=== PATIENT | female | born 1955 | race Caucasian/White ===

== ENCOUNTER 2023-01-06 13:15 | Outpatient (AMB) | payer MEDICARE, SELFPAY ==
--- NOTE | 2023-01-06 13:34 | HO.NEPHOV ---
Intake Vital Signs 01/06/23 13:35 Height 5 ft 4 in Weight 145 lb 4 oz BMI 24.9 BP 146/60 H Blood Pressure Location Rt brachial Position Sitting Intake Visit Reasons: CKD (chronic kidney disease) Employment And Claims Aide Required: No Accompanied by: Self / Same As Patient Allergies No Known Allergies Allergy (Verified 01/06/23 09:09) HPI HPI Comments History of Present Illness Details I had the privilege of seeing Kristin in follow up for H/O JERALD and hypertension. She has hypertension and monitors her BP at home which has been at goal . She denies neuropathy , retinopathy, new CAD, CVA, CHF, PAD but has H/O carotid & renal artery stenosis. She is on ACEI. She does not take NSAID's regularly. She denies any nausea, vomiting, diarrhea, SOB, edema, PND, orthopnea, hematuria, hearing deficits. She claims to be compliant with medications. She has no sinusitis, epistaxis, photosensitivity, bone pain, sore throat , hemoptysis, skin lesions or recent antibiotic intake. She denied any active complaints at the time of this office visit. Her renal function remains at baseline Assessment & Plan Assessment & Plan (1) Chronic Kidney Disease: Code(s): N18.9 - Chronic kidney disease, unspecified (2) Chronic kidney disease, stage 3a: Code(s): N18.31 - Chronic kidney disease, stage 3a (3) Atherosclerosis of renal artery: Code(s): I70.1 - Atherosclerosis of renal artery Plan Renal function stable Serum potassium 5.3 Low K diet; Needs repeat K No medication changes made today No NSAID's; Shall order a F/U Doppler renal artery after next visit On lipid lowering agents Maintain good hydration Keep monitoring BP at home Has vascular follow up Answered all questions Follow up labs ordered Time spent reviewing chart/data/encounter/documentation 41 minutes Orders: Orders Creatinine 01/06/23 I70.1 - Atherosclerosis of renal artery, N18.31 - Chronic kidney disease, stage 3a Calcium 01/06/23 I70.1 - Atherosclerosis of renal artery, N18.31 - Chronic kidney disease, stage 3a Electrolytes 01/06/23 I70.1 - Atherosclerosis of renal artery, N18.31 - Chronic kidney disease, stage 3a Blood Urea Nitrogen 01/06/23 I70.1 - Atherosclerosis of renal artery, N18.31 - Chronic kidney disease, stage 3a Coding Level of Care Code Est Pt Level 4 (76377) Diagnoses Chronic Kidney Disease N18.9 Chronic kidney disease, stage 3a N18.31 Atherosclerosis of renal artery I70.1 [facility] Medical History (Updated 01/06/23 @ 13:59 by Tan Mendez MD) Chronic kidney disease, stage 3a Atherosclerosis of renal artery Right bundle branch block Essential (primary) hypertension Family History (Updated 01/06/23 @ 13:41 by Caryn Colbert MA) Mother Hypertension CKD (chronic kidney disease) Father Hypertension Social History (Updated 01/06/23 @ 09:08 by Caryn Colbert MA) Alcohol intake: never Patient Tobacco Use Status: Former Tobacco user
[2023-01-06 13:35] VITALS: BP 146/60; BMI 24.9
== END 2023-01-06 14:04 | disposition home or self-care (01) ==
LOC: HO.HKA 13:15
PROVIDERS: Visit Provider Internal Medicine Nephrology
DX: N18.31 Chronic kidney disease, stage 3a (principal); I70.1 Atherosclerosis of renal artery
CPT/HCPCS: 99215

== ENCOUNTER → 2023-01-06 13:15 | Outpatient (BNVA) | payer MEDICARE, SELFPAY | PROVIDERS: Visit Provider Internal Medicine Nephrology | DX: N18.31 Chronic kidney disease, stage 3a (principal); I70.1 Atherosclerosis of renal artery | CPT/HCPCS: 99212 ==

== ENCOUNTER 2023-08-23 14:23 | Outpatient (AMB) | payer MEDICARE, SELFPAY ==
--- NOTE | 2023-08-23 14:36 | HO.NEPHOV ---
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 She has hypertension and monitors her BP at home which has been at goal . She denies neuropathy , retinopathy, new CAD, CVA, CHF, PAD but has H/O carotid & renal artery stenosis. She is on ACEI. She does not take NSAID's regularly. She denies any nausea, vomiting, diarrhea, SOB, edema, PND, orthopnea, hematuria, hearing deficits. She claims to be compliant with medications. She has no sinusitis, epistaxis, photosensitivity, bone pain, sore throat , hemoptysis, skin lesions or recent antibiotic intake. She denied any active complaints at the time of this office visit. Her renal function remains at baseline [facility] Medical History (Updated 01/06/23 @ 13:59 by Tan Mendez MD) Chronic kidney disease, stage 3a Atherosclerosis of renal artery Right bundle branch block Essential (primary) hypertension Family History (Updated 01/06/23 @ 13:41 by Caryn Colbert MA) Mother Hypertension CKD (chronic kidney disease) Father Hypertension Social History (Updated 01/06/23 @ 09:08 by Caryn Colbert MA) Alcohol intake: never Patient Tobacco Use Status: Former Tobacco user Review of Systems Const All systems reviewed & are unremarkable except as noted in HPI and below Physical Exam Const General: comfortable and no acute distress Orientation/consciousness: patient oriented x3 HEENT Head: Yes normocephalic Mouth: Normal oral and palatal mucosa present Eyes EOM: EOMs intact bilaterally Neck Neck: Yes supple Resp Auscultation: clear to auscultation bilaterally Cardio Jugular venous distension: no JVD Rate: regular rate GI Palpation (GI): Soft to palpation Auscultation: normal bowel sounds General: Yes no CVA tenderness Back/Spine/Pelvis Back: no CVA tenderness Skin General skin exam: no rashes or lesions noted Neuro General: patient oriented x3 and moves all extremities Extrem General: Yes no pedal edema Results Reviewed Nephrology Results: No Data to Display Assessment & Plan Assessment & Plan (1) Chronic kidney disease, stage 3a: Code(s): N18.31 - Chronic kidney disease, stage 3a Category: Medical (2) Atherosclerosis of renal artery: Code(s): I70.1 - Atherosclerosis of renal artery Category: Medical Plan Renal function stable Serum potassium normal No medication changes made today No NSAID's; Shall order a F/U Doppler renal artery/ renal USS after next visit On lipid lowering agents Maintain good hydration Keep monitoring BP at home Has vascular follow up Answered all questions Follow up labs ordered Orders: Orders Creatinine Today I70.1 - Atherosclerosis of renal artery, N18.31 - Chronic kidney disease, stage 3a Blood Urea Nitrogen Today I70.1 - Atherosclerosis of renal artery, N18.31 - Chronic kidney disease, stage 3a Electrolytes Today I70.1 - Atherosclerosis of renal artery, N18.31 - Chronic kidney disease, stage 3a Protein Creatinine Ratio, Ur Today I70.1 - Atherosclerosis of renal artery, N18.31 - Chronic kidney disease, stage 3a Coding Level of Care Code Est Pt Level 4 (58505) Diagnoses Chronic kidney disease, stage 3a N18.31 Atherosclerosis of renal artery I70.1
[2023-08-23 14:37] VITALS: BP 120/70; PULSE 79; O2SAT 99; BMI 24.2
== END 2023-08-23 15:08 | disposition home or self-care (01) ==
PROVIDERS: PCP Internal Medicine; Visit Provider Internal Medicine Nephrology
DX: N18.31 Chronic kidney disease, stage 3a (principal); I70.1 Atherosclerosis of renal artery
CPT/HCPCS: 99214

== ENCOUNTER → 2023-08-23 14:23 | Outpatient (BNVA) | payer MEDICARE, SELFPAY | PROVIDERS: PCP Internal Medicine; Visit Provider Internal Medicine Nephrology | DX: N18.31 Chronic kidney disease, stage 3a (principal); I70.1 Atherosclerosis of renal artery | CPT/HCPCS: 99212 ==

== ENCOUNTER 2024-03-15 09:22 | Outpatient (AMB) | payer MEDICARE, SELFPAY ==
[2024-03-15 09:52] VITALS: BP 130/60; PULSE 65; O2SAT 96; BMI 24.2
--- NOTE | 2024-03-15 09:52 | HO.NEPHOV ---
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 She has hypertension and monitors her BP at home which has been at goal . She denies neuropathy , retinopathy, new CAD, CVA, CHF, PAD but has H/O carotid & renal artery stenosis. She is on ACEI. She does not take NSAID's regularly. She denies any nausea, vomiting, diarrhea, SOB, edema, PND, orthopnea, hematuria, hearing deficits. She claims to be compliant with medications. She has no sinusitis, epistaxis, photosensitivity, bone pain, sore throat , hemoptysis, skin lesions or recent antibiotic intake. She denied any active complaints at the time of this office visit. Her renal function remains at baseline [facility] Medical History (Updated 03/15/24 @ 10:27 by Tan Mendez MD) Chronic kidney disease, stage 3a Atherosclerosis of renal artery Right bundle branch block Essential (primary) hypertension Family History Mother Hypertension CKD (chronic kidney disease) Father Hypertension Social History Alcohol intake: never Patient Tobacco Use Status: Former Tobacco user Review of Systems Const All systems reviewed & are unremarkable except as noted in HPI and below Physical Exam Vital Signs: Last Vital Signs Pulse 65 03/15/24 09:52 BP 136/60 03/15/24 09:52 Pulse Ox 96 03/15/24 09:52 Oxygen Delivery Method Room Air 03/15/24 09:52 BMI result Body Mass Index 24.2 Const General: comfortable and no acute distress Orientation/consciousness: patient oriented x3 HEENT Head: Yes normocephalic Mouth: Normal oral and palatal mucosa present Eyes EOM: EOMs intact bilaterally Neck Neck: Yes supple Resp Auscultation: clear to auscultation bilaterally Cardio Jugular venous distension: no JVD Rate: regular rate GI Palpation (GI): Soft to palpation Auscultation: normal bowel sounds General: Yes no CVA tenderness Back/Spine/Pelvis Back: no CVA tenderness Skin General skin exam: no rashes or lesions noted Neuro General: patient oriented x3 and moves all extremities Extrem General: Yes no pedal edema Results Reviewed Nephrology Results: No Data to Display Assessment & Plan Assessment & Plan (1) Chronic kidney disease, stage 3a: Code(s): N18.31 - Chronic kidney disease, stage 3a Category: Medical (2) Atherosclerosis of renal artery: Code(s): I70.1 - Atherosclerosis of renal artery Category: Medical (3) Renovascular hypertension: Code(s): I15.0 - Renovascular hypertension Category: Medical Plan Renal function stable Serum potassium normal No medication changes made today No NSAID's; Shall order a F/U Doppler renal artery/ renal USS after next visit On lipid lowering agents Maintain good hydration Keep monitoring BP at home Answered all questions Follow up labs ordered Orders: Orders Creatinine 6 Months I15.0 - Renovascular hypertension, I70.1 - Atherosclerosis of renal artery, N18.31 - Chronic kidney disease, stage 3a Blood Urea Nitrogen 6 Months I15.0 - Renovascular hypertension, I70.1 - Atherosclerosis of renal artery, N18.31 - Chronic kidney disease, stage 3a Electrolytes 6 Months I15.0 - Renovascular hypertension, I70.1 - Atherosclerosis of renal artery, N18.31 - Chronic kidney disease, stage 3a Protein Creatinine Ratio, Ur 6 Months I15.0 - Renovascular hypertension, I70.1 - Atherosclerosis of renal artery, N18.31 - Chronic kidney disease, stage 3a Coding Level of Care Code Est Pt Level 4 (35200) Diagnoses Chronic kidney disease, stage 3a N18.31 Atherosclerosis of renal artery I70.1 Renovascular hypertension I15.0
== END 2024-03-15 10:34 | disposition home or self-care (01) ==
PROVIDERS: PCP Internal Medicine; Visit Provider Internal Medicine Nephrology
DX: N18.31 Chronic kidney disease, stage 3a (principal); I70.1 Atherosclerosis of renal artery; I15.0 Renovascular hypertension
CPT/HCPCS: 99214

== ENCOUNTER → 2024-03-15 09:22 | Outpatient (BNVA) | payer MEDICARE, SELFPAY | PROVIDERS: PCP Internal Medicine; Visit Provider Internal Medicine Nephrology | DX: N18.31 Chronic kidney disease, stage 3a (principal); I70.1 Atherosclerosis of renal artery; I15.0 Renovascular hypertension | CPT/HCPCS: 99212 ==

== ENCOUNTER 2024-11-08 14:13 | Outpatient (AMB) | payer MEDICARE, SELFPAY ==
--- NOTE | 2024-11-08 14:13 | HO.NEPHOV ---
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 She has hypertension and monitors her BP at home which has been at goal . She denies neuropathy , retinopathy, new CAD, CVA, CHF, PAD but has H/O carotid & renal artery stenosis. She is on ACEI. She does not take NSAID's regularly. She denies any nausea, vomiting, diarrhea, SOB, edema, PND, orthopnea, hematuria, hearing deficits. She claims to be compliant with medications. She has no sinusitis, epistaxis, photosensitivity, bone pain, sore throat , hemoptysis, skin lesions or recent antibiotic intake. She has been having low BP readings in the mornings. She has some protein in the urine. Her renal function remains at baseline [facility] Medical History (Updated 11/08/24 @ 14:25 by Tan Mendez MD) Chronic kidney disease, stage 3a Atherosclerosis of renal artery Right bundle branch block Essential (primary) hypertension Family History Mother Hypertension CKD (chronic kidney disease) Father Hypertension Social History Alcohol intake: never Patient Tobacco Use Status: Former Tobacco user Review of Systems Const All systems reviewed & are unremarkable except as noted in HPI and below Physical Exam Const General: comfortable and no acute distress Orientation/consciousness: patient oriented x3 HEENT Head: Yes normocephalic Mouth: Normal oral and palatal mucosa present Eyes EOM: EOMs intact bilaterally Neck Neck: Yes supple Resp Auscultation: clear to auscultation bilaterally Cardio Jugular venous distension: no JVD Rate: regular rate GI Palpation (GI): Soft to palpation Auscultation: normal bowel sounds General: Yes no CVA tenderness Back/Spine/Pelvis Back: no CVA tenderness Skin General skin exam: no rashes or lesions noted Neuro General: patient oriented x3 and moves all extremities Extrem General: Yes no pedal edema Assessment & Plan Assessment & Plan (1) Renovascular hypertension: Code(s): I15.0 - Renovascular hypertension Category: Medical (2) Chronic kidney disease, stage 3a: Code(s): N18.31 - Chronic kidney disease, stage 3a Category: Medical (3) Atherosclerosis of renal artery: Code(s): I70.1 - Atherosclerosis of renal artery Category: Medical (4) Proteinuria: Code(s): R80.9 - Proteinuria, unspecified Category: Medical Qualifiers: Proteinuria type: other Qualified Code(s): R80.8 - Other proteinuria Plan Renal function stable;Serum potassium normal Reduced labetalol to 50 mg AM and 100 mg PM No other medication changes made today No NSAID's; Ordered a F/U Doppler renal artery/ renal USS Shall switch her Amlodipine to Diltiazem if she has proteinuria On lipid lowering agents;Maintain good hydration Keep monitoring BP at home; Follow up labs ordered Orders: Orders US renal doppler 1 Month I15.0 - Renovascular hypertension, I70.1 - Atherosclerosis of renal artery, N18.31 - Chronic kidney disease, stage 3a US renal BI 1 Month I15.0 - Renovascular hypertension, I70.1 - Atherosclerosis of renal artery, N18.31 - Chronic kidney disease, stage 3a Protein Creatinine Ratio, Ur Today I15.0 - Renovascular hypertension, I70.1 - Atherosclerosis of renal artery, N18.31 - Chronic kidney disease, stage 3a Coding Level of Care Code Est Pt Level 4 (66226) Diagnoses Renovascular hypertension I15.0 Chronic kidney disease, stage 3a N18.31 Atherosclerosis of renal artery I70.1 Other proteinuria R80.8 Proteinuria type: other
[2024-11-08 14:16] VITALS: BP 140/62; PULSE 76; O2SAT 98; BMI 23.6
--- OUTSIDE RECORDS SUMMARY | 2024-11-08 14:40 | XMS_ITS | Clinical Summary ---
Author Organization [facility] Address [address] [address] Phone Care Team Providers Care Store Standards Associate Name Role Phone Luis Cisneros MD Primary Care Provider [phone] Allergies No known active allergies Medications latanoprost (XALATAN) 0.005 % ophthalmic solution 1 drop every night Active pravastatin (PRAVACHOL) 40 MG tablet Take 40 mg by mouth 1 (one) time each day Active lisinopril 40 MG tablet Take 40 mg by mouth 1 (one) time each day Active amLODIPine (NORVASC) 5 MG tablet Take 5 mg by mouth in the morning and 5 mg in the evening. Active busPIRone (BUSPAR) 10 MG tablet Take 10 mg by mouth in the morning and 10 mg in the evening. Active labetalol (NORMODYNE) 100 MG tablet Take 100 mg by mouth in the morning and 100 mg in the evening. Active Rhopressa 0.02 % solution PLACE ONE DROP IN BOTH AFFECTED EYE ONCE A DAY IN THE EVENING 3 Active dorzolamide-micah olol (COSOPT) 22.3-6.8 MG/ML ophthalmic solution Administer 1 drop into both eyes 3 Active aspirin (ST MATEO) 81 MG EC tablet Take 81 mg by mouth 1 (one) time each day Active Active Problems Problem Noted Date Diagnosed Date Renal artery stenosis 06/16/2022 Essential (primary) hypertension 05/23/2022 Chronic kidney disease 05/23/2022 Family History Medical History Relation Comments Hypertension Brother Heart disease Father Hypertension Father Diabetes Mother Heart disease Mother CAD Hypertension Mother Hypertension Sister Relation Status Comments Brother Father Mother Sister Social History Tobacco Use Types Packs/Day Years Used Date Smoking Tobacco: Former Cigarettes Smokeless Tobacco: Never Tobacco Cessation:Counseling Given: Not Answered Alcohol Use Standard Drinks/Week Comments Never 0 (1 standard drink = 0.6 oz pur e alcohol) Comments Unknown Sex and Gender Information Value Date Recorded Sex Assigned at Not on file Legal Sex Female 9:09 AM EST Gender Identity Not on file Sexual Orientation Not on file Last Filed Vital Signs Vital Sign Reading Time Taken Comments Blood Pressure 138/60 06/16/2022 3:03 PM EDT Pulse 83 06/16/2022 3:03 PM EDT Temperature - - Respiratory Rate - - Oxygen Saturation - - Inhaled Oxygen Concentration - - Weight 65.6 kg (144 lb 9.6 oz) 06/16/2022 3:03 P M EDT Height - - Body Mass Index - - Plan of Treatment Health Maintenance Due Date Last Done Comments Breast Cancer Screening 1955 Pneumococcal Vaccine: 50+ Ye ars (1 of 2 - PCV) 1973 Colorectal Cancer Screening: Annual FOBT 09/23/2003 Colorectal Cancer Screening: Colonoscopy 09/23/2003 Colorectal Cancer Screening: Sigmoidoscopy 09/23/2003 Influenza Vaccine (#1) 2024 Hepatitis B Vaccine Aged Out No longe r eligible based on patient's age to complete this topic Insurance Medicare [facility] Medicare [facility] Care Teams Store Standards Associate Relationship Specialty Start Date End Date Luis Cisneros MD [address] [place] [id number] PCP - General Internal Medicine 02/22/22
--- OUTSIDE RECORDS SUMMARY | 2024-11-08 14:40 | XMS_ITS | Clinical Summary ---
Author Organization [facility] Address [address] [place] [id number] Phone Care Team Providers Care Medical Massage Therapist Name Role Phone Luis Cisneros MD Primary Care Provider [phone] Allergies No known active allergies Medications amLODIPine (NORVASC) 5 MG tablet Take 5 mg by mouth 2 (two) times a day. Active dorzolamide-micah oloL (COSOPT) 22.3-6.8 mg/mL ophthalmic solution instill 1 drop in each eye twice a day 03/12/2024 Active latanoprost (XALATAN) 0.005 % ophthalmic solution INSTILL ONE DROP IN BOTH EYES AT BEDTIME, 90 DAY SUPPLY Active lisinopril (PRINIVIL,ZESTR IL) 10 MG tablet Take 10 mg by mouth. 08/29/2023 Active labetaloL (TRANDATE) 100 MG tablet Take 100 mg by mouth 2 (two) times a day. Active pravastatin (PRAVACHOL) 40 MG tablet Take 40 mg by mouth daily. Active traZODone (DESYREL) 50 MG tablet TAKE 1 TABLET BY MOUTH EVERY DAY AT BEDTIME NEEDED FOR 90 DAYS 04/02/2024 Active vit C,R-cmfrxy-ymdq anthin-minerals (PRESERVISION AREDS-2) capsule Active Active Problems No known active problems Social History Tobacco Use Types Packs/Day Years Used Date Smoking Tobacco: Never Assessed Education Answer Date Recorded Are you interested in more education? Not on jodi e 05/13/2024 Are you concerned about learning? Not on file 05/13/2024 No 05/13/2024 No 05/13/2024 Digital Access Answer Date Recorded No 05/13/2024 No 05/13/2024 Reliable internet access at home? Not on file 05/13/2024 Device with a working camera? Not on file Comments Unknown Sex and Gender Information Value Date Recorded Sex Assigned at Not on file Legal Sex Female 9:47 AM EDT Gender Identity Not on file Sexual Orientation Not on file Plan of Treatment Upcoming Encounters Date Type Department Care Team ([facility] st Contact Info) Description 11/21/2024 9:30 AM EDT Office Visit [facility] in [address] [address] Efrem Gomez MD [address] [place] [address], [address] [place] [address] [email or web address] Health Maintenance Due Date Last Done Comments Adult Td,Tdap Booster 1955 CREATININE LEVEL 1954 LIPID PANEL 1954 POTASSIUM LEVEL 1954 DEPRESSION SCREENING 1966 SMOKING Hx and SMOKELESS TOB ACCO SCREENING 09/23/1967 HEPATITIS C SCREENING 1972 MAMMOGRAM 1994 COLOGUARD 09/23/1999 COLONOSCOPY 09/23/1999 COLORECTAL CANCER SCREENING 09/23/1999 FIT TEST 09/23/1999 FOBT 09/23/1999 SIGMOIDOSCOPY 09/23/1999 VIRTUAL COLONOSCOPY 09/23/1999 PNEUMOCOCCAL VACCINES (50+ y ears) (1 of 1 - PCV) 2004 ZOSTER VACCINES (1 of 2) 2004 OSTEOPOROSIS SCREENING INITI AL (ONE-TIME) 09/23/2019 COVID-19 VACCINE ( - 2023-2 5 season) 2023 RSV VACCINE (1 - 1-dose 75+ series) 2029 HEPATITIS A VACCINES Aged Out No long er eligible based on patient's age to complete this topic HIB VACCINES Aged Out No longer eligi ble based on patient's age to complete this topic MENINGOCOCCAL VACCINES (ACWY) Aged Out No longer eligible based on patient's age to complete this topic MENINGOCOCCAL VACCINES (B) Aged Out N o longer eligible based on patient's age to complete this topic Medical Devices Not on file Insurance MEDICARE PART A & B [employer] SUPPLEMENT Care Teams Medical Massage Therapist Relationship Specialty Start Date End Date Luis Cisneros MD [address] [place] [id number] PCP - General Internal Medicine 05/13/24 Additional Source Comments The information contained in this document represents components of the legal health record. It is not the complete legal health record.[facility]
--- OUTSIDE RECORDS SUMMARY | 2024-11-08 14:40 | XMS_ITS | Clinical Summary ---
Author Organization [facility] Address [address] [place] [address] Phone Care Team Providers Care Shuttle Fitting Supervisor Name Role Phone Charissa Gonzalez MD Primary Care Provider [phone] Social History Tobacco Use Types Packs/Day Years Used Date Smoking Tobacco: Never Assessed Comments Unknown Sex and Gender Information Value Date Recorded Sex Assigned at Not on file Legal Sex Female 6:02 PM EST Gender Identity Not on file Sexual Orientation Not on file Plan of Treatment Upcoming Encounters Date Type Department Care Team (Late st Contact Info) Description 01/10/2025 8:45 AM EST Appointment [facility] [address] [address] Health Maintenance Due Date Last Done Comments DTaP,Tdap,and Td Vaccines (1 - Tdap) 1973 Pneumococcal Vaccine: 50+ Years (1 of 1 - PCV) 2004 Zoster Vaccines (1 of 2) 2004 Colorectal Cancer Screening: Colonoscopy 02/16/2022 Falls Risk Assessment 02/16/2022 Hepatitis C Screening 02/16/2022 Medicare Annual Wellness Visit 02/16/2022 Osteoporosis Screening (Bone Density Screening) 02/16/2022 Social Influencers of Health Screening 02/16/2022 Depression Screening 03/06/2024 COVID-19 Vaccine ( season) 2024 Influenza Vaccine (#1) 2024 Breast Cancer Screening 01/04/2026 01/05/20 24, 01/11/2022, 12/22/2020, Additional history exists RSV Immunization Adult Patients (1 - 1-dose 75+ series) 2029 HIB Vaccines Aged Out No longer eligi ble based on patient's age to complete this topic HPV Vaccines Aged Out No longer eligi ble based on patient's age to complete this topic Hepatitis A Vaccines Aged Out No long er eligible based on patient's age to complete this topic Hepatitis B Vaccines Aged Out No long er eligible based on patient's age to complete this topic IPV Vaccines Aged Out No longer eligi ble based on patient's age to complete this topic MMR Vaccines Aged Out No longer eligi ble based on patient's age to complete this topic Meningococcal ACWY Vaccine Aged Out N o longer eligible based on patient's age to complete this topic Meningococcal B Vaccine Aged Out No l onger eligible based on patient's age to complete this topic RSV Immunization Patients Under 20 months Aged Out No longer eligible based on patient's age to complete this topic Varicella Vaccines Aged Out No longer eligible based on patient's age to complete this topic Procedures Procedure Name Priority Date/Time Associated Diagnosis Comments GEN SCREENING DIGITAL Routine 01/05/2024 2:59 PM EDT from Last 3 Months or Most Recently Relevant to Health Maintenance Results * GEN SCREENING DIGITAL (01/05/2024 2:59 PM EDT) Anatomical Region Laterality Modality Mammography 01/05/2024 1:21 PM EDT Narrative 01/05/2024 2:59 PM EDT [facility] Diagnostic Imaging Department [address] [place], [place] [id number] Patient: CELESTESARBJITLIBERTY/Age/Sex: 1955 - 68 - F Unit#: [id number] Location/Status: SPDIMAM/REG CLI Mnemonic[facility] Ordering Physician: CHARISSA GONZALEZ MD Gen Screening Digital - 01/05/24 - [id number] Report Status:Signed EXAM: SCREENING MAMMOGRAPHY, BILATERAL HISTORY: SCREENING. Family history of breast cancer COMPARISON: 01/11/2022, 12/22/2020, 11/25/2019 TECHNIQUE: Synthesized CC and MLO projections of each breast. Tomosynthesis of each breast in the CC and MLO projections. ADDITIONAL IMAGING: None Computer-aided detection was employed with the [employer] 3-D. TISSUE DENSITY: There are scattered areas of fibroglandular density. (BI-RADS category B) FINDINGS: RIGHT BREAST: No suspicious mass. No suspicious calcification. No distortion. There is an unchanged 0.5 cm low-density focal asymmetry in the 9 o'clock position 7 cm from the right nipple. Stability since at least 10/17/2014. LEFT BREAST: No suspicious mass. No suspicious calcification. No distortion. No additional suspicious left breast findings IMPRESSION: No mammographic evidence of malignancy. No suspicious interval change. A negative mammogram in the presence of a clinically suspicious palpable abnormality does not preclude the possibility of malignancy or alter the warren cations for biopsy. ASSESSMENT: BI-RADS 2: BENIGN RECOMMENDATION(S): 1: Routine screening mammogram BILATERAL in 1 year. Dictating Physician: Grady HOLDER BRET MD Electronically Signed by: Grady HOLDER BRET MD Dic Date/Time: 01/05/24 1450 Sign date/Time: 01/05/24 1459 Procedure Note Weston Holder MD - 01/06/2024 [facility] Diagnostic Imaging Department [address] [place], [place] [id number] Patient: LIBERTY THOMAS /Age/Sex: 1955 - 68 - F Unit#: [id number] Location/Status: SPDIMAM/REG CLI Mnemonic/Ordering Site: [facility] Ordering Physician: CHARSISA GONZALEZ MD Gen Screening Digital - 01/05/24 - [id number] Report Status:Signed EXAM: SCREENING MAMMOGRAPHY, BILATERAL HISTORY: SCREENING. Family history of breast cancer COMPARISON: 01/11/2022, 12/22/2020, 11/25/2019 TECHNIQUE: Synthesized CC and MLO projections of each breast.Tomosynthesis of each breast in the CC and MLO projections. ADDITIONAL IMAGING: None Computer-aided detection was employed with the [employer] 3-D. TISSUE DENSITY: There are scattered areas of fibroglandular density.(BI-RADS category B) FINDINGS: RIGHT BREAST: No suspicious mass. No suspicious calcification. No distortion. There isan unchanged 0.5 cm low-density focal asymmetry in the 9 o'clock position 7cm from the right nipple. Stability since at least 10/17/2014. LEFT BREAST: No suspicious mass. No suspicious calcification. No distortion. Noadditional suspicious left breast findings IMPRESSION: No mammographic evidence of malignancy. No suspicious interval change. A negative mammogram in the presence of a clinically suspicious palpable abnormality does not preclude the possibility of malignancy or alter theindi cations for biopsy. ASSESSMENT: BI-RADS 2: BENIGN RECOMMENDATION(S): 1: Routine screening mammogram BILATERAL in 1 year. Dictating Physician: Grady HOLDER BRET MD Electronically Signed by: Grady HOLDER BRET MD Dic Date/Time: 01/05/24 1459 Sign date/Time: 01/05/24 5305 Charissa Gonzalez MD IMG BI PROCEDURES Final Result from Last 3 Months or Most Recently Relevant to Health Maintenance Insurance MEDICARE [facility] Care Teams Shuttle Fitting Supervisor Relationship Specialty Start Date End Date Charissa Gonzalez MD [address] [place] [address] PCP - General Internal Medicine 10/14/24
--- OUTSIDE RECORDS SUMMARY | 2024-11-08 14:40 | XMS_ITS | Encounter Summary ---
Author Organization [facility] Address [address] [place] [address] Phone Care Team Providers Care Extrusion Supervisor Name Role Phone Luis Cisneros MD Primary Care Provider [phone] Encounter Details Date Type Department Care Team (Late st Contact Info) Description 06/16/2022 Documentation Only [facility] [address] [place] [address] Cristel Kaiser [place] Social History Tobacco Use Types Packs/Day Years Used Date Smoking Tobacco: Former Cigarettes Smokeless Tobacco: Never Alcohol Use Standard Drinks/Week Comments Never 0 (1 standard drink = 0.6 oz pur e alcohol) Comments Unknown Sex and Gender Information Value Date Recorded Sex Assigned at Not on file Legal Sex Female 9:09 AM EST Gender Identity Not on file Sexual Orientation Not on file documented as of this encounter Plan of Treatment Not on file documented as of this encounter Visit Diagnoses Not on filedocumented in this encounter Care Teams Extrusion Supervisor Relationship Specialty Start Date End Date Luis Cisneros MD [address] [facility] [address] [place] [address] PCP - General Internal Medicine 02/22/22 documented as of this encounter
== END 2024-11-08 14:39 | disposition home or self-care (01) ==
LOC: HO.HKA 14:13
PROVIDERS: PCP Internal Medicine; Visit Provider Internal Medicine Nephrology
DX: I15.0 Renovascular hypertension (principal); N18.31 Chronic kidney disease, stage 3a; I70.1 Atherosclerosis of renal artery; R80.8 Other proteinuria
CPT/HCPCS: 99214

== ENCOUNTER → 2024-11-08 14:13 | Outpatient (BNVA) | payer MEDICARE, SELFPAY | PROVIDERS: PCP Internal Medicine; Visit Provider Internal Medicine Nephrology | DX: I70.1 Atherosclerosis of renal artery (principal); N18.31 Chronic kidney disease, stage 3a; I15.0 Renovascular hypertension; R80.9 Proteinuria, unspecified | CPT/HCPCS: 99212 ==

== ENCOUNTER 2024-12-20 14:21 | Outpatient (AMB) | payer MEDICARE, SELFPAY ==
--- OUTSIDE RECORDS SUMMARY | 2024-12-19 10:15 | XMS_ITS | Encounter Summary ---
Author Organization [facility] Address [address] [facility] [address] [place] [id number] Phone Care Team Providers Care Dairy Husbandry Worker Name Role Phone Luis Cisneros MD Primary Care Provider [phone] Reason for Visit * Reason Comments Glaucoma and cataract eval OU per Steve Macdonald Cataract Encounter Details Date Type Department Care Team ([facility] st Contact Info) Description 12/19/2024 10:15 AM EDT Office Visit [facility] in [address] [place] [id number] Gavin Finch MD, PhD [address] [place] [address], [address] [place] [address] [email or web address] Nuclear sclerotic cataract of both eyes (Primary Dx); Primary open angle glaucoma (POAG) of both eyes, mild stage; Age-related nuclear cataract of left eye; Primary open angle glaucoma of left eye, mild stage Social History Tobacco Use Types Packs/Day Years [...] on file documented as of this encounter Patient Instructions * Patient Instructions* Meron Slater - 12/19/2024 10:15 AM EDT Images from the original note were not included. Patient Name: Liberty Arizmendi Date of : 1955 OCB INFORMED CONSENT FOR CATARACT SURGERY Your doctor Blaze Finch M.D., has told you that you have a cataract that is impairing your visionand is offering you cataract surgery. WHAT IS A CATARACT AND HOW IS IT TREATED? The lens in the eye can become cloudy and hard, a condition known as a cataract. Cataracts can develop from normal aging, from an eye injury, or if you have taken certain types of medications. Cataracts may cause blurred vision, sensitivity to light and glare, and/or ghost images. If the cataract changes vision so that it interferes with your daily life, the cataract can be removed to improve your vision. Surgery is the only way to remove a cataract. This surgery can be done at just about any time, now or in the future, whenever you decide that your vision is interfering with your daily life.If your vision is not interfering with your life, it may be appropriate to wait until the cataract worsens and have surgery later. HOW WILL REMOVING THE CATARACT AFFECT MY VISION? The goal of cataract surgery is to correct the decreased vision that is caused by the cataract. During the surgery, your surgeon removes the cataract and puts in a new artificial lens called an intraocular lens. Cataract surgery will not correct other causes of decreased vision, such as glaucoma, diabetes, or age- related macular degeneration. While cataract surgery can often reduce your need for glasses, most people still need to wear glasses or contact lenses after cataract surgery to improve either distance vision, intermediate vision, near vision, or all of the above. WHAT ARE THE MAJOR RISKS OF CATARACT SURGERY? As with any surgical procedure, there are risks and complications associated with cataract surgery.Not every complication can be listed on this form, but the following are examples of risks encountered with cataract surgery: Inflammation High eye pressure Swelling of the cornea and/or retina Bleeding in the eye Infection Retinal detachment Droopy eyelid Inability to remove the entire cataract Inability to implant the intraocular lens that you selected Mechanical problem with the intraocular lens requiring removal or repositioning Pain, irritation, or discomfort in the eye or surrounding tissues that may persist Double vision Need for additional surgery Worse vision Unintended damage to the eyeball Blindness or loss of the eye Patient Name: Liberty Arizmendi Date of : 1955 OCB These complications can occur days, weeks, months, or years after the surgery. Careful follow-up isrequired after surgery. After your eye heals, you will still need regular eye exams. WHAT TYPE OF ANESTHESIA IS USED? WHAT ARE THE MAJOR RISKS OF ANESTHESIA? Cataract surgery can be performed under topical or regional anesthesia. With either type of anesthesia, the anesthesia doctor or nurse will also give you a short-acting intravenous sedation to help you relax. With topical anesthesia, eye drops are used to numb the eye. With topical anesthesia, you must be able to cooperate with the surgeon to make sure you do not move your eye during surgery. Risks of topical anesthesia include: Inadvertent injury to the eye by movement during surgery Drooping of the eyelid Increased sensation during the procedure With regional anesthesia, anesthetic medicine is injected around the eye to numb the eye and immobilize it for surgery. Risks of regional anesthesia include: Needle damage to the eyeball or optic nerve, which could cause loss of vision Interference with circulation of the retina, which could cause loss of vision Drooping of the eyelid Double vision Bruising of the skin around the eyes Risks of intravenous sedation: Effects on the body that have the potential for life-threatening complications and DISCLOSURES Care Team I understand that my surgery will be performed by my surgeon. OCB [place] may be present at my surgery and may participate in the surgery under the direct supervision of my surgeon for all critical portions of the surgery. Some aspects of my pre- and post-operative care may be provided by my surgeon; other [facility] physicians, fellows or optometrists; or my primary eye care provider. ASC Ownership I acknowledge that the procedure(s) will be performed at an ambulatory surgery center ([facility]). I further understand that the [facility] is a for-profit ambulatory surgery center owned by physicians, and that my physician does have a partial ownership interest in the Center. Conflict of Interest My surgeon has informed me that he/she DOES NOT have any financial interests in devices, instruments or pharmaceuticals that will be used during my surgery. Patient Name: Liberty Arizmendi Date of : 1955 OC ACCEPTANCE OF RISK I am aware that in the practice of medicine, other unexpected risks or complications not discussed may occur. I also understand that during the course of the proposed procedure(s), unforeseen conditions may be revealed requiring the performance of additional procedures, and I authorize such procedures to be performed. I understand that the majority of patients having this procedure do not experience the risks and complications listed above and that it is impossible for my doctor to inform me of every possible complication that may occur. I understand that in most cases, when a complication occurs, it can get better on its own or with treatment. My doctor has told me that the results I want cannot be guaranteedand that even after cataract surgery, more treatment (including surgery) might be needed. By signing below, I agree that my doctor has answered all of my questions, that I understand and accept the risks and benefits of cataract surgery, and that I understand the alternatives. I authorize my surgeon to proceed with CATARACT SURGERY on my LEFT EYE. I want a/an MONOFOCAL intraocular lens. With this intraocular lens our goal is to expect DISTANCE vision in this eye. After surgery, I understand that I will probably, and most likely need: GLASSES FOR NEAR VISION However, I understand that no guarantees have been made on spectacle independence. Patient Signature (or person authorized to sign for patient) Date Patient Name: Liberty Arizmendi Date of : 1955 OCB INFORMED CONSENT FOR HYDRUS MICROSTENT SURGERY You have glaucoma, and your doctor, Blaze Finch M.D., is recommending Hydrus Microstent surgery. WHAT IS GLAUCOMA AND HOW IS IT TREATED? Glaucoma is a disease defined by optic nerve damage. Glaucoma slowly gets worse over time and cannot be reversed. If it is not treated, it causes a painless loss of eyesight. In some cases, it can lead to blindness. The damage to the optic nerve in glaucoma is thought to be caused by fluid imbalance or pressure in the eye. Glaucoma is treated by lowering the eye pressure because this slows down the optic nerve damage. The best choices for treatment are those that lower the eye pressure with thefewest risks to the patient's eyesight and overall health. Usually eye drop medications or laser therapy are used first. Often, multiple medications are needed to get the desired pressure level. Unfor tunately, many patients have trouble using eye drops because of cost, side effects, and other difficulties. There is also surgery for glaucoma that is used when eye drops and laser do not lower the eye pressure enough, but these surgeries often come with increased risks. WHAT IS HYDRUS MICROSTENT SURGERY AND HOW WILL IT HELP MY GLAUCOMA? Recently there have been technologic advances, called ???minimally-invasive glaucoma surgeries?? (MIGS), which provide control of the eye pressure at lower risk than more traditional glaucoma surgeries. MIGS alter the eye's drainage system to lower the eye pressure and reduce the need for medications. MIGS are performed through an incision that is less than 3 mm long. Hydrus Microstent surgery is one type of MIGS in which your surgeon implants a device called the Hydrus Microstent in an area of the eye called Schlemm's Canal to allow fluid to leave your eye. WHAT ARE THE MAJOR RISKS OF HYDRUS MICROSTENT SURGERY? As with any surgical procedure, there are risks and complications associated with Hydrus Microstentsurgery. In some cases, Hydrus Microstent surgery may not lower your eye pressure or control your glaucoma even when it is properly performed. Not every complication can be listed on this form but the following are examples of risks encountered with Hydrus Microstent surgery: Failure to control eye pressure, with the need for eye drops, laser treatment, or another operation Vision could be made worse or, in rare cases, totally lost Pressure that is too low (hypotony) Unintended damage to the eyeball Infection Abnormal collection of fluid in the eye, with the need for a second operation Patient Name: Liberty Arizmendi Date of : 1955 OCB Bleeding in the eye Inflammation Mechanical problem with an implant requiring removal or repositioning Cataract (except if you have already had cataract surgery or if you are having cataract surgery at the same time as this glaucoma surgery) Pain, irritation, or discomfort in the eye or surrounding tissues that may persist Drooping of eyelid Double vision These complications can occur days, weeks, months, or years after the surgery. Careful follow-up isrequired after surgery. After your eye heals, you will still need regular eye exams to monitor yourglaucoma and to watch for other eye problems. WHAT TYPE OF ANESTHESIA IS USED? WHAT ARE THE MAJOR RISKS FOR ANESTHESIA? Hydrus Microstent surgery can be performed under topical or regional anesthesia. With either type of anesthesia, the anesthesia doctor or nurse may also give you a short-acting intravenous sedation to help you relax. With topical anesthesia, eye drops are used to numb the eye. With topical anesthesia, you must be able to cooperate with the surgeon to make sure you do not move your eye during surgery. Risks of topical anesthesia include: Inadvertent injury to the eye by movement during surgery Drooping of the eyelid Increased sensation during the procedure With regional anesthesia, anesthetic medicine is injected around the eye to numb the eye and immobilize it for surgery. Risks of regional anesthesia include: Needle damage to the eyeball or optic nerve, which could cause loss of vision Interference with circulation of the retina, which could cause loss of vision Drooping of the eyelid Double vision Bruising of the skin around the eyes Risks of intravenous sedation: Effects on the body that have the potential for life-threatening complications and DISCLOSURES Care Team I understand that my surgery will be performed by my surgeon. [facility] [place] may be present at my surgery and may participate in the surgery under the direct supervision of my surgeon for all critical portions of the surgery. Some aspects of my pre- and post-operative care may be provided by my surgeon; other [facility] physicians, fellows or optometrists; or my primary eye care provider. [facility] Ownership I acknowledge that the procedure(s) will be performed at an ambulatory surgery center ([facility]). I further understand that the [facility] is a for-profit ambulatory surgery center owned by physicians, and Patient Name: Liberty Arizmendi Date of : 1955 OCB that my physician has a partial ownership interest in the Center. Conflict of Interest My surgeon has informed me that he/she does not have any financial interests in devices, instruments or pharmaceuticals that will be used during my surgery. ACCEPTANCE OF RISK I am aware that in the practice of medicine, other unexpected risks or complications not discussed may occur. I also understand that during the course of the proposed procedure(s), unforeseen conditions may be revealed requiring the performance of additional procedures, and I authorize such procedures to be performed. I understand that the majority of patients having this procedure do not experience the risks and complications listed above and that it is impossible for my doctor to inform me of every possible complication that may occur. I understand that in most cases, when a complication occurs, it can get better on its own or with treatment. My doctor has told me that the results I want cannot be guaranteedand that even after Hydrus Microstent surgery, more treatment (including additional surgery) might be needed. By signing below, I agree that my doctor has answered all of my questions, that I understand and accept the risks and benefits of Hydrus Microstent surgery, and that I understand the alternatives. I authorize my surgeon to proceed with HYDRUS MICROSTENT SURGERY on my LEFT eye. Patient Signature (or person authorized to sign for patient) Date documented in this encounter Progress Notes * Gavin Finch MD, PhD - 12/19/2024 10:15 AM EDT New Patient Cataract/Glaucoma Evaluation referred by Dr. Gomez Discussed with patient today: Cataract OU - visually significant IOLM done 12/19/2024 Primary open angle glaucoma OU [place] visual field OD is stable and shows a non-glaucomatous defect from May 2021 OCT RNFL today OD is of good quality and shows glaucomatous thinning OCT RNFL today OS is of good quality and shows glaucomatous thinning (+) FHx of glaucoma Corneas are not thin Gonio done today, angles are open Nerves appears damaged Intraocular pressure high at 26/24 OU with current drops upon arrival Intraocular pressure (IOP) reduced by a value LESS than 15% from the pre- intervention level, or pre-intervention IOP unknown; glaucoma plan of care documented. Recommend Phaco/ Hydrus to help improve vision and lower Intraocular pressure. Patient agreed. - The patient has glaucoma. Glaucoma is a chronic disease in which the optic nerve gets damaged over time and results in gradual permanent vision loss. Progression of glaucoma may be asymptomatic andlife-long monitoring of the disease is required in the form of regular and repeated eye pressure, optic nerve, and visual field evaluations. These evaluations can only be performed by an eye doctor and they are required to prevent vision loss and functional impairment. The treatment of glaucoma requires life-long lowering of eye pressure with medication, laser, and/or surgery to reduce the rate of the optic nerve damage and vision loss. If the patient is prescribed eye drops for glaucoma, it isintended for these to be continued indefinitely until the patient's eye doctor instructs otherwise.The patient should call eye doctor immediately if she is experiencing side effects from glaucoma treatment. Visually significant Cataract OS - affecting ADLs & identified as the primary source of decreased vision. Discussed that an update in glasses and/or contacts would not improve vision significantly and would not improve glare symptoms due to the presence of cataracts. Patient wishes to proceed with cataract surgery OS. Cataract surgery with intraocular lens implantation and Hydrus microstent implantation discussed. Elective nature of cataract surgery and alternative of no surgery discussed with patient. Reviewed benefits of cataract surgery and the intraocular lens options, including monofocal, multifocal, and toric. Explained that intraocular lens calculation is an estimate and may not be exact. Explained glaucoma surgery options including all available MIGS options and traditional glaucoma surgery options and the option of doing cataract and glaucoma surgery separately. Risks of cataract surgery and glaucoma surgery discussed with patient including (but not limited to) loss of vision, hemorrhage, infection, iritis, loss of intraocular pressure control (high or low), need for drops or laser to control intraocular pressure, intraocular lens dislocation, increased incidence of retinal detachment, droopy eyelid, swelling of ocular structures, double vision, corneal failure, hypotony, choroidal detachment, and possible need for additional procedures. No guarantees as to the outcome have been made. ? Postoperative care will be done by the operating surgeon, colleagues or referring doctors. The patient understands the likely need for glasses to achieve the best corrected distance and near vision following surgery. Patient chooses Monofocal IOL targeting plano Patient understands that fellow eye may need to be done soon after first eye if there is troublesome anisemetropia and Patient understands potential complexities/limitations to final vision related to the following patient- and/or procedure-specific risk factors: glaucoma, dry age-related macular de generation ? ?I discussed with the patient information about cataract surgery with intraocular lens implantationand Hydrus microstent implantation including potential benefits and health risks concerning the procedure, to enable the patient to decide whether to undergo the procedure. After the discussion, the p atient verbally consented to undergo the procedure. The patient will be asked to sign an informed consent form. Target IOP: --- TMAX: CCT: 566/547 Last Gonio: 12/28 Last DFE: 12/28 Last Photos: --- Last HVF: ?--- Last OCT: ?12/28 ?Family HX??: mother Prev Glaucoma Procedures: s/p SLT OD 03/2024 Drop History: --- Glaucoma Care Shared with: --- Not discussed with patient: Myopia, Hyperopia, Astigmatism, and Presbyopia Following by Dr. Gomez: - Advanced Dry age-related macular degeneration both eyes Letter Dictated To: Luis Cisneros MD (PCP) Pérez Whalen MD (ash conveyor operator) Efrem Gomez MD *_*_*_*_*_*_*_*_*_*_*_*_*_*_*_*_*_*_*_*_*_*_*_*_*_*_*_*_*_*_*_* Continue: Dorzolamide/ Timolol OU BID Latanoprost OU QHS ? Follow up: Surgery to be scheduled: CE/IOL + Hydrus OS Diagnosis Code: Nuclear Cataract H25.12, POAG H40.1121 Complex: No Floppy iris: No iRing: No Trypan blue: No IOL Master done on: 12/19/2024 Target: plano ORA: No Retina back-up: No Anesthesia: Topical Surgery Date: TBD by surgical manager Location: [facility] hospital Co-Managed: No Pre-Op/Post-Op Drops: Ketorolac, Ofloxacin, and Prednisolone Pharmacy: [place], [place] Stop glaucoma drops after surgery: Yes -- stop Dorzolamide/Timolol, Latanoprost Consents signed & packet given Comp Eye: 12/19/2024 I, the attending physician, Blaze Finch MD PhD, attest that I obtained the History of Present Illness (HPI) and reviewed or performed all that is documented in this encounter. This encounter was transcribed by IOANA Sam. documented in this encounter Plan of Treatment Upcoming Encounters Date Type Department Care Team (Late st Contact Info) Description 01/27/2025 1:20 PM EST Outpatient Surgery [facility] ~[address] [address] Gavin Finch MD, PhD [address] [place] [id number] 01/28/2025 10:00 AM EST Office Visit [facility] in [address] [address] Gavin Finch MD, PhD [address] [place] [id number] 02/13/2025 10:45 AM EST Office Visit [facility] in [address] [address] Gavin Finch MD, PhD [address] [place] [id number] 03/24/2025 2:00 PM EST Outpatient Surgery [facility] ~[address] [address] Gavin Finch MD, PhD [address] [place] [id number] 03/25/2025 9:00 AM EST Office Visit [facility] in [address] [address] Gavin Finch MD, PhD [address] [facility], [address] [place] [address] [email or web address] Scheduled Orders Name Type Priority Associated Diagnoses Orde r Schedule MOXIFLOXACIN - OS - LEFT EYE Ophthalmology Routine Age-related nuclear cataract of left eye Expected: 06/20/2025 (Approximate), Expires: 12/20/2025 ECCE/PHACO w/IOL and ab interno AC Drainage Device - OS - Left Eye Ophthalmology Routine Age-related nuclear cataract of left eye Primary open angle glaucoma of left eye, mild stage Expected: 12/20/2024, Expires: 12/20/2025 documented as of this encounter Procedures Procedure Name Priority Date/Time Associated Diagnosis Comments OPTICAL BIOMETRY - OU - BOTH EYES Routine 12/19/2024 11:41 AM EDT Nuclear sclerotic cataract of both eyes OCT, OPTIC NERVE - OU - BOTH EYES Routine 12/19/2024 11:40 AM EDT Primary open angle glaucoma (POAG) of both eyes, mild stage documented in this encounter Results * Optical Biometry - OU - Both Eyes (12/19/2024 11:41 AM EDT) Other Narrative HARMONY - 12/20/2024 4:32 AM EDT Right Eye Formula used: [place] II. Left Eye Formula used: [place] II. General Details Testing performed by: AM. Notes No CL, s/p SLT OD. Very good SNR OD, good OS. Poor TF OU, used AT OU w/improvement. See FORUM. Good pt cooperation OU. - AM I have reviewed the biometry data. I, Blaze Finch MD PhD, have reviewed the biometry data and have selected IOLs for cataract surgery. us Gavin Finch MD, PhD OPHTHALMOLOGY IMAGING Final Result MILAGROS * OCT, Optic Nerve - OU - Both Eyes - (12/19/2024 11:40 AM EDT) Other Narrative MILAGROS - 12/20/2024 4:33 AM EDT Right Eye Quality: Good. Change: Baseline. Optic nerve head and nerve fiber layer: Abnormal superior, Abnormal inferior. Left Eye Quality: Good. Change: Baseline. Optic nerve head and nerve fiber layer: Abnormal superior, Abnormal inferior. General Details Testing performed by: AM. Radiation Engineer Comments: good pt cooperation. Gavin Finch MD, PhD OPHTHALMOLOGY IMAGING Final Result MILAGROS documented in this encounter Visit Diagnoses Diagnosis Nuclear sclerotic cataract of both eyes- Primary Senile nuclear sclerosis Primary open angle glaucoma (POAG) of both eyes, mild stage Age-related nuclear cataract of left eye Primary open angle glaucoma of left eye, mild stage documented in this encounter Care Teams Dairy Husbandry Worker Relationship Specialty Start Date End Date Luis Cisneros MD PCP - General Internal Medicine 05/13/24 documented as of this encounter Additional Source Comments The information contained in this document represents components of the legal health record. It is not the complete legal health record.[facility]
--- NOTE | 2024-12-20 14:50 | HO.NEPHOV_ITS ---
Vital Signs 12/20/24 14:53 Height 5 ft 4 in Weight 138 lb 2 oz BMI 23.7 BP 126/50 L Blood Pressure Location Lt brachial Position Sitting Pulse 78 Pulse Source Pulse Oximeter Pulse Oximetry (%) 98 Oxygen Delivery Method Room Air Intake Visit Reasons: 6wks f/u w/labs-LVM Senior Solutions Architect Required: No Accompanied by: Self / Same As Patient Allergies No Known Allergies Allergy (Verified 12/20/24 14:53) HPI Comments Details: Kristin in follow up for H/O BRANDAN and hypertension. She has glaucoma and is going to have cataract surgery. She has hypertension and monitors her BP at home which has been at goal . She denies neuropathy , retinopathy, new CAD, CVA, CHF, PAD but has H/O carotid & renal artery stenosis. She is on ACEI. She does not take NSAID's regularly. She denies any nausea, vomiting, diarrhea, SOB, edema, PND, orthopnea, hematuria, hearing deficits. She claims to be compliant with medications. She has no sinusitis, epistaxis, photosensitivity, bone pain, sore throat , hemoptysis, skin lesions or recent antibiotic intake.She has some p rotein in the urine. Her renal function remains at baseline COUNT INCLUDES THE [facility] Medical History (Updated 11/08/24 @ 14:25 by Tan Mendez MD) Chronic kidney disease, stage 3a Atherosclerosis of renal artery Right bundle branch block Essential (primary) hypertension Family History Mother Hypertension CKD (chronic kidney disease) Father Hypertension Social History Alcohol intake: never Patient Tobacco Use Status: Former Tobacco user Review of Systems Const All systems reviewed & are unremarkable except as noted in HPI and below Physical Exam Vital Signs: Last Vital Signs Pulse 78 12/20/24 14:53 BP 126/50 L 12/20/24 14:53 Pulse Ox 98 12/20/24 14:53 Oxygen Delivery Method Room Air 12/20/24 14:53 BMI result Body Mass Index 23.7 Const General: comfortable and no acute distress Orientation/consciousness: patient oriented x3 HEENT Head: Yes normocephalic Mouth: Normal oral and palatal mucosa present Eyes EOM: EOMs intact bilaterally Neck Neck: Yes supple Resp Auscultation: clear to auscultation bilaterally Cardio Jugular venous distension: no JVD Rate: regular rate GI Palpation (GI): Soft to palpation Auscultation: normal bowel sounds General: Yes no CVA tenderness Back/Spine/Pelvis Back: no CVA tenderness Skin General skin exam: no rashes or lesions noted Neuro General: patient oriented x3 and moves all extremities Extrem General: Yes no pedal edema Assessment & Plan Assessment & Plan (1) Atherosclerosis of renal artery: Code(s): I70.1 - Atherosclerosis of renal artery Category: Medical (2) Chronic kidney disease, stage 3a: Code(s): N18.31 - Chronic kidney disease, stage 3a Category: Medical Plan Renal function stable;Serum potassium normal C/W labetalol 50 mg AM and 100 mg PM Take Amlodipine 10 mg at night No NSAID's; Ordered a F/U Doppler renal artery/ renal USS Shall switch her Amlodipine to Diltiazem if she has proteinuria On lipid lowering agents;Maintain good hydration Keep monitoring BP at home; Follow up labs ordered Coding Level of Care Code Est Pt Level 4 (59473) Diagnoses Atherosclerosis of renal artery I70.1 Chronic kidney disease, stage 3a N18.31
[2024-12-20 14:53] VITALS: BP 126/50; PULSE 78; O2SAT 98; BMI 23.7
--- OUTSIDE RECORDS SUMMARY | 2024-12-20 16:53 | XMS_ITS | Encounter Summary ---
Author Organization [facility] Address [address] [place] [address] Phone Care Team Providers Care Specimen Collector Name Role Phone Luis Cisneros MD Primary Care Provider [phone] Encounter Details Date Type Department Care Team (Late Contact Info) Description 11/21/2024 Telephone [facility] [place] [address] [facility] [address] [place] [address] [place] [address] [place] [address] [email or web address] Social History Tobacco Use Types Packs/Day Years [...] as of this encounter Plan of Treatment Upcoming Encounters Date Type Department Care Team (Late Contact Info) Description 01/27/2025 1:20 PM EST Outpatient Surgery [facility] ~[address] [address] Gavin Finch MD, PhD [address] [place] [address], [address] [address] 01/28/2025 10:00 AM EST Office Visit [facility] in [address] [address] Gavin Finch MD, PhD [address] [place] [address] 02/13/2025 10:45 AM EST Office Visit [facility] in [address] [address] Gavin Finch MD, PhD [address] [place] [address] 03/24/2025 2:00 PM EST Outpatient [facility] [address] [address] Gavin Finch MD, PhD [address] [place] [address] [email or web address] 03/25/2025 9:00 AM EST Office Visit [facility] in [address] [address] Gavin Finch MD, PhD [address] [place] [address] [email or web address] documented as of this encounter Visit Diagnoses Not on filedocumented in this encounter Care Teams Specimen Collector Relationship Specialty Start Date End Date Luis Cisneros MD PCP - General Internal Medicine 05/13/24 documented as of this encounter Additional Source Comments The information contained in this document represents components of the legal health record. It is not the complete legal health record.[facility]
--- OUTSIDE RECORDS SUMMARY | 2024-12-20 16:53 | XMS_ITS | Clinical Summary ---
Author Organization [facility] Address [address] [address] Phone Care Team Providers Care Skip Loader Name Role Phone Luis Cisneros MD Primary Care Provider [phone] Allergies No known active allergies Medications latanoprost [...] age to complete this topic Insurance Medicare [facility] Medicare [facility] Care Teams Skip Loader Relationship Specialty Start Date End Date Luis Cisneros MD [address] [place] [address] PCP - General Internal Medicine 02/22/22
--- OUTSIDE RECORDS SUMMARY | 2024-12-20 16:53 | XMS_ITS | Encounter Summary ---
Author Organization [facility] Address [address] [facility] [address] [place] [address] Phone Care Team Providers Care Door To Door Salesperson Name Role Phone Luis Cisneros MD Primary Care Provider [phone] Encounter Details Date Type Department Care Team (Late st Contact Info) Description 12/06/2024 Orders Only [facility] [place] [address] [facility] [address] [place] [address] Elio Han MD [address] [place] [id number] [email or web address] 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 (Primary Dx); Advanced atrophic nonexudative age-related macular degeneration of left eye without subfoveal involvement Social History Tobacco Use Types Packs/Day Years [...] Description 01/27/2025 1:20 PM EST Outpatient Surgery [facility] ~[address] [address] Gavin Finch MD, PhD [address] [place] [address] 01/28/2025 10:00 AM EST Office Visit [facility] in [address] [address] Gavin Finch MD, PhD [address] [place] [address] 02/13/2025 10:45 AM EST Office Visit [facility] in [address] [place] [address] Gavin Finch MD, PhD [address] [place] [phone] 03/24/2025 2:00 PM EST Outpatient Surgery [facility] ~[address] [address] Gavin Finch MD, PhD [address] [place] [address] 03/25/2025 9:00 AM EST Office Visit [facility] in [address] [address] Gavin Finch MD, PhD [address] [place] [address] documented as of this encounter Results * OCT, RETINA - OU - BOTH EYES - [place] (12/06/2024 10:54 AM EDT) Other Narrative HARMONY - 12/06/2024 10:54 AM EDT Multifocal geographic atrophy OU Elio Han MD OPHTHALMOLOGY IMAGING Eda l Result [place]Y * Autofluorescence - OU - Both Eyes (12/06/2024 10:54 AM EDT) Anatomical Region Laterality Modality Head Optical Coherenc e Tomography Other Narrative 12/06/2024 10:54 AM EDT Multifocal geographic atrophy OU Elio Han MD OPHTHALMOLOGY IMAGING Edit ed Result - Final documented in this encounter Visit Diagnoses Diagnosis 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 Advanced atrophic nonexudative age-related macular degeneration of left eye without subfoveal involvement 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 It is not the complete legal health record.[facility]
--- OUTSIDE RECORDS SUMMARY | 2024-12-20 16:53 | XMS_ITS | Clinical Summary ---
Author Organization [facility] Address [address] [place] [address] Phone Care Team Providers Care Dermatologist Name Role Phone Luis Cisneros MD Primary Care Provider [phone] Allergies No known active allergies Medications amLODIPine [...] MG tablet Take 10 mg by mouth daily. 08/29/2023 Active labetaloL (TRANDATE) 100 MG tablet Take 100 mg by mouth 2 (two) times a day. Active pravastatin (PRAVACHOL) 40 MG tablet Take 40 mg by mouth daily. Active traZODone (DESYREL) 50 MG tablet TAKE 1 TABLET BY MOUTH EVERY DAY AT BEDTIME NEEDED FOR 90 DAYS 04/02/2024 Active vit C,Q-iawqbk-zjut anthin-minerals (PRESERVISION AREDS-2) capsule Take 1 capsule by mouth 2 (two) times a day. Active lisinopril (PRINIVIL,ZESTR IL) 40 MG tablet Take 40 mg by mouth daily. Active ofloxacin (OCUFLOX) 0.3 % ophthalmic solution Place 1 drop into the left eye 4 (four) times a day. Starting 3 days before eye surgery 10 mL 3 12/20/2024 Active prednisoLONE acetate (PRED FORTE) 1 % ophthalmic suspension Place 1 drop into the left eye 4 (four) times a day. Starting after eye surgery 15 mL 3 12/20/2024 Active ketorolac (ACULAR) 0.5 % ophthalmic solution Place 1 drop into the left eye 4 (four) times a day. 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; Advanced atrophic nonexudative age-related macular degeneration of left eye without subfoveal involvement 12/06/2024 Orders Only [facility] in [address] [address] Elio Han MD 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 (Primary Dx); Advanced atrophic nonexudative age-related macular degeneration of left eye without subfoveal involvement 11/21/2024 9:30 AM EDT Office Visit [facility] in [address] [address] Efrem Gomez MD Nonexudative age-related macular degeneration, bilateral, advanced atrophic without subfoveal involvement (Primary Dx) 11/21/2024 Telephone [facility] in [address] [address] [place] 11/21/2024 Telephone [facility] in [address] [address] Gavni Finch MD, PhD from Last 3 Months Family History Medical History Relation Comments Cataracts Mother Glaucoma Mother Macular degeneration Mother Retinal detachment Neg Hx Relation Status Comments Mother Social History Tobacco Use Types Packs/Day Years [...] Description 01/27/2025 1:20 PM EST Outpatient Surgery [facility] [address] [address] Gavin Finch MD, PhD [address] [place] [address] 01/28/2025 10:00 AM EST Office Visit [facility] in [address] [address] Gavin Finch MD, PhD [address] [place] [address] 02/13/2025 10:45 AM EST Office Visit [facility] [place] in [place] [address] [facility] [address] [place] [address] Gavin Finch MD, PhD [address] [place] [address] 03/24/2025 2:00 PM EST Outpatient Surgery [facility] ~[address] [address] Gavin Finch MD, PhD [address] [place] [address], [address] [address] [email or web address] 03/25/2025 9:00 AM EST Office Visit [facility] in [address] [address] Gavin Finch MD, PhD [address] [place] [address], [address] [place] [address] [email or web address] Health Maintenance Due Date Last Done Comments [...] 2004 OSTEOPOROSIS SCREENING INITI AL (ONE-TIME) 09/23/2019 INFLUENZA VACCINE (#1) 2024 COVID-19 VACCINE ( - 2024-2 6 season) 2024 RSV VACCINE (1 - 1-dose 75+ series) [...] this topic Medical Devices Not on file Procedures Procedure Name Priority Date/Time Associated Diagnosis Comments OPTICAL BIOMETRY - OU - BOTH EYES Routine 12/19/2024 11:41 AM EDT Nuclear sclerotic cataract of both eyes OCT, OPTIC NERVE - OU - BOTH EYES Routine 12/19/2024 11:40 AM EDT Primary open angle glaucoma (POAG) of both eyes, mild stage OCT, RETINA - OU - BOTH EYES Routine 12/06/2024 10:54 AM EDT 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 Advanced atrophic nonexudative age-related macular degeneration of left eye without subfoveal involvement AUTOFLUORESCENCE - OU - BOTH EYES Routine 12/06/2024 10:54 AM EDT 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 Left Eye Formula used: Hubbard II. General Details Testing performed by: AM. [...] - (12/19/2024 11:40 AM EDT) Other Narrative 5skillsY - 12/20/2024 4:33 AM EDT Right Eye Quality: Good. Change: Baseline. Optic nerve head and nerve fiber layer: Abnormal superior, Abnormal inferior. Left Eye Quality: Good. Change: Baseline. Optic nerve head and nerve fiber layer: Abnormal superior, Abnormal inferior. General Details Testing performed by: AM. Automotive Parts Coordinator Comments: good pt cooperation. Gavin Finch MD, PhD OPHTHALMOLOGY IMAGING Final Result Performing Organization Address [facility] de Phone Number [email or web address] * OCT, RETINA - OU - BOTH EYES - [place] (12/06/2024 10:54 AM EDT) Other Narrative eEvent - 12/06/2024 10:54 AM EDT Multifocal geographic atrophy OU Result [facility] Elio Han MD OPHTHALMOLOGY IMAGING Eda l Result Performing Organization Address [facility] Phone Number [email or web address] * Autofluorescence - OU - Both Eyes (12/06/2024 10:54 AM EDT) Anatomical Region Laterality Modality Head Optical Coherenc e Tomography Other Narrative 12/06/2024 10:54 AM EDT Multifocal geographic atrophy OU Result [facility] Elio Han MD OPHTHALMOLOGY IMAGING Edit ed Result - Final * OCT, RETINA - OU - BOTH EYES - [place] (11/21/2024 9:34 AM EDT) Other Narrative eEvent - 11/21/2024 10:19 AM EDT Testing performed by: SC. Notes OD: atrophy, no heme or fluid OS: atrophy, no heme or fluid Efrem Gomez MD OPHTHALMOLOGY IMAGING Final R esult Performing Organization Address [facility] de Phone Number eEvent from Last 3 Months Insurance MEDICARE PART A & B Member Subscriber Plan / Payer (Ef fective 2020-Present) Name:Liberty Arizmendi Member ID:[id number] Relation to Subscriber:Self Name:Liberty Arizmendi Subscriber ID:[id number] Payer ID:[id number] Group ID:Not on file Type:Medicare Address: [employer] [address] [place] [phone] [employer] SUPPLEMENT MEDICARE PART A & B Member Subscriber Plan / Payer (Ef fective 2020-Present) Name:Liberty Arizmendi Member ID:[id number] Relation to Subscriber:Self Name:Liberty Arizmendi Subscriber ID:[id number] Payer ID:[id number] Group ID:Not on file Type:Medicare Address: [employer] [address] [place] [phone] [employer] SUPPLEMENT Care Teams Dermatologist Relationship Specialty Start Date End Date Luis Cisneros MD PCP - General Internal Medicine 05/13/24 Additional Source Comments The information contained in this document represents components of the legal health record. It is not the complete legal health record.[facility]
--- OUTSIDE RECORDS SUMMARY | 2024-12-20 16:53 | XMS_ITS | Clinical Summary ---
Author Organization [facility] Address [address] [place] [address] Phone Care Team Providers Care Thermal Molder Name Role Phone Charissa Gonzalez MD Primary Care Provider [phone] Encounters Date Type Department Care Team Description 12/05/2024 7:14 AM EDT - 12/05/2024 11:59 PM EDT Hospital Encounter [facility] Ultrasound [address] [place] [address] Discharge Disposition: Home or Self Care from Last 3 Months Social History Tobacco Use Types Packs/Day Years [...] AM EST Appointment [facility] at [address] [phone] Health Maintenance Due Date Last Done Comments Colorectal Cancer Screening: Colonoscopy 1955 Pneumococcal Vaccine: 50+ Years (1 of 1 - PCV) 2004 Cholesterol Screening (Lipid Panel) 02/16/2022 Falls Risk Assessment 02/16/2022 Hepatitis C Screening 02/16/2022 Medicare Annual Wellness Visit 02/16/2022 Osteoporosis Screening (Bone Density Screening) 02/16/2022 Social Influencers of Health Screening 02/16/2022 DTaP,Tdap,and Td Vaccines (2 - Td or Tdap) 07/12/2023 07/11/2013 Depression Screening 03/06/2024 COVID-19 Vaccine ( season) 2024 12/12/2022, 06/02/2020, 05/12/2020 Hypertension/CHF/CAD Annual BMP Blood Test 11/11/2024 Breast Cancer Screening 01/04/2026 01/05/20 24, 01/11/2022, 12/22/2020, Additional history exists RSV Immunization Adult Patients (1 - 1-dose 75+ series) 2029 Zoster Vaccines Completed 10/28/2020, 08/26/2020 Influenza Vaccine Completed 12/02/2024, , 12/12/2022, Additional history exists HIB Vaccines Aged Out No longer eligi [...] Procedure Name Priority Date/Time Associated Diagnosis Comments US DUPLEX ABDOMEN/PELVIS/RET RO COMPLETE Routine 12/05/2024 7:56 AM EDT Chronic kidney disease (CKD) stage G3a/A1, moderately decreased glomerular filtration rate (GFR) between 45-59 mL/min/1.73 square meter and albuminuria creatinine ratio les* (CMS/HCC V24, CMS/HCC V28) Atherosclerotic renal artery stenosis (CMS/HCC V24) Renovascular hypertension GEN SCREENING DIGITAL Routine 01/05/2024 2:59 PM EDT from Last 3 Months or Most Recently Relevant to Health Maintenance Results * US Duplex Abdomen/Pelvis/Retro Complete (12/05/2024 7:56 AM EDT) Anatomical Region Laterality Modality Body Ultrasound 12/13/2024 3:30 PM EDT Impressions 12/13/2024 3:46 PM EDT Limited evaluation of the kidneys. No gross abnormality. There are elevated systolic velocities in the proximal renal artery on each side. These have not increased. I do not believe this study can adequately exclude renovascular hypertension -------- FINAL REPORT -------- Dictated By: Weston Holder Dictated Date: 12/13/2024 15:30 ET Assigned Physician: Weston Holder Reviewed and Electronically Signed By: Weston Holder Signed Date: 12/13/2024 15:46 ET Workstation ID: [id number] Transcribed By: Self Edit Transcribed Date: 12/13/2024 15:30 ET Narrative 12/13/2024 3:46 PM EDT HISTORY: Chronic kidney disease 3A. Atherosclerosis of renal artery. Renal vascular hypertension TECHNIQUE: Real-time grayscale imaging of both kidneys. Color mapping. Doppler spectral analysis including quantitative assessment of the region of the proximal abdominal aorta and of each renal artery and waveform analysis with resistive indices of each kidney. FINDINGS: Real-time ultrasonography of the kidneys is performed. There is significant limitation. Some of the renal anatomy is unable to be visualized. Bowel and limited acoustical access. Right renal length: 8.8 cm in greatest length Left renal length: 9.2 cm in greatest length Renal contours: There is an approximately 2.2 cm area of slightly altered echotexture involving the left kidney. This area is not well evaluated and appear similar to 202. There was no suspicious abnormality on MRI 06/07/22 Renal cortical thickness and echogenicity: No definite abnormality Caliber of collecting system: There is no dilation of the intrarenal collecting system on either side. Focal lesions: No other suspicious focal lesion in either kidney. Calculi: No shadowing calculi on either side. Other: No other suspicious findings demonstrated. Doppler interrogation of the renal arteries was performed. RIGHT ACCELERATION TIMES: Upper - 0.06 seconds Interpolar - 0.06 seconds Lower - 0.07 seconds Expected acceleration times are less than 0.1 seconds RIGHT RESISTIVE INDICES Upper pole - 0.71 Interpolar - 0.72 Lower pole - 0.76 Expected resistive indices less than or equal to 0.75 PEAK SYSTOLIC VELOCITY RIGHT RENAL ARTERY Proximal - 198 cm/sec Mid - 179 cm/sec Distal - 209 cm/sec Normal peak systolic velocity in the renal artery is less than or equal to 180 cm/s The proximal aortic velocity is 128 cm/sec The RIGHT RENAL to aortic ratio is 1.6. Normal renal/aortic ratio is less than 3.5 RIGHT COLOR SIGNAL: There is color signal distributed throughout the right kidney. RIGHT WAVEFORM MORPHOLOGY: Difficult to identify an early systolic peak from the waveforms obtained from the right kidney. LEFT ACCELERATION TIMES: Upper - 0.05 seconds Interpolar - 0.06 seconds Lower - 0.06 seconds Expected acceleration times are less than 0.1 seconds LEFT RESISTIVE INDICES Upper pole - 0.71 Interpolar - 0.68 Lower pole - 0.64 Expected resistive indices less than or equal to 0.75 PEAK SYSTOLIC VELOCITY LEFT RENAL ARTERY Proximal - 259 cm/sec Mid - 239 cm/sec Distal - 135 cm/sec Normal peak systolic velocity in the renal artery is less than or equal to 180 cm/s The proximal aortic velocity is 128 cm/sec The LEFT RENAL to aortic ratio is 2.0. Normal renal/aortic ratio is less than 3.5 LEFT COLOR SIGNAL: There is color signal present within the left kidney LEFT WAVEFORM MORPHOLOGY: Difficult to identify early systolic peaks in the left kidney. The interrogation of the left renal artery is limited. Procedure Note Weston Holder MD - 12/13/2024 HISTORY: Chronic kidney disease 3A. Atherosclerosis of renal artery. Renalvascular hypertension TECHNIQUE: Real-time grayscale imaging of both kidneys. Color mapping.Doppler spectral analysis including quantitative assessment of the regionof the proximal abdominal aorta and of each renal artery and waveformanalysis with resistive indices of each kidney. FINDINGS: Real-time ultrasonography of the kidneys is performed. There is significant limitation. Some of the renal anatomy is unable to bevisualized. Bowel and limited acoustical access. Right renal length: 8.8 cm in greatest length Left renal length: 9.2 cm in greatest length Renal contours: There is an approximately 2.2 cm area of slightly alteredechotexture involving the left kidney. This area is not well evaluated andappear similar to 202. There was no suspicious abnormality on MRI06/07/22 Renal cortical thickness and echogenicity: No definite abnormality Caliber of collecting system: There is no dilation of the intrarenalcollecting system on either side. Focal lesions: No other suspicious focal lesion in either kidney. Calculi: No shadowing calculi on either side. Other: No other suspicious findings demonstrated. Doppler interrogation of the renal arteries was performed. RIGHT ACCELERATION TIMES: Upper - 0.06 seconds Interpolar - 0.06 seconds Lower - 0.07 seconds Expected acceleration times are less than 0.1 seconds RIGHT RESISTIVE INDICES Upper pole - 0.71 Interpolar - 0.72 Lower pole - 0.76 Expected resistive indices less than or equal to 0.75 PEAK SYSTOLIC VELOCITY RIGHT RENAL ARTERY Proximal - 198 cm/sec Mid - 179 cm/sec Distal - 209 cm/sec Normal peak systolic velocity in the renal artery is less than or equal to180 cm/s The proximal aortic velocity is 128 cm/sec The RIGHT RENAL to aortic ratio is 1.6. Normal renal/aortic ratio is less than 3.5 RIGHT COLOR SIGNAL: There is color signal distributed throughout the rightkidney. RIGHT WAVEFORM MORPHOLOGY: Difficult to identify an early systolic peakfrom the waveforms obtained from the right kidney. LEFT ACCELERATION TIMES: Upper - 0.05 seconds Interpolar - 0.06 seconds Lower - 0.06 seconds Expected acceleration times are less than 0.1 seconds LEFT RESISTIVE INDICES Upper pole - 0.71 Interpolar - 0.68 Lower pole - 0.64 Expected resistive indices less than or equal to 0.75 PEAK SYSTOLIC VELOCITY LEFT RENAL ARTERY Proximal - 259 cm/sec Mid - 239 cm/sec Distal - 135 cm/sec Normal peak systolic velocity in the renal artery is less than or equal to180 cm/s The proximal aortic velocity is 128 cm/sec The LEFT RENAL to aortic ratio is 2.0. Normal renal/aortic ratio is less than 3.5 LEFT COLOR SIGNAL: There is color signal present within the left kidney LEFT WAVEFORM MORPHOLOGY: Difficult to identify early systolic peaks inthe left kidney. The interrogation of the left renal artery is limited. IMPRESSION: Limited evaluation of the kidneys. No gross abnormality. There are elevated systolic velocities in the proximal renal artery oneach side. These have not increased. I do not believe this study can adequately exclude renovascularhypertension -------- FINAL REPORT -------- Dictated By: Weston Holder Dictated Date: 12/13/2024 15:30 ET Assigned Physician: Weston Holder Reviewed and Electronically Signed By: Weston Holder Signed Date: 12/13/2024 15:46 ET Workstation ID: [id number] Transcribed By: Self Edit Transcribed Date: 12/13/2024 15:30 ET us Tan Mendez MD IMG US PROCEDURES Final Result * [facility] SCREENING DIGITAL (01/05/2024 2:59 PM EDT) Anatomical Region Laterality Modality Mammography 01/05/2024 1:21 PM EDT Narrative 01/05/2024 2:[address] [facility] Diagnostic Imaging Department [address] [place], [place] [id number] Patient: MARTHALIBERTY/Age/Sex: 1955 - 68 - F Unit#: [id number] Location/Status: [facility] CLI Mnemonic/Ordering Site: [facility] Ordering Physician: CHARISSA GONZALEZ MD [facility] Screening Digital - 01/05/24 1387 Report Status:Signed EXAM: SCREENING MAMMOGRAPHY, BILATERAL HISTORY: SCREENING. Family history of breast cancer COMPARISON: 01/11/2022, 12/22/2020, 11/25/2019 TECHNIQUE: Synthesized CC and MLO projections of each breast. Tomosynthesis of each breast in the CC and MLO projections. ADDITIONAL IMAGING: None Computer-aided detection was employed with the iCAD profound AI 3-D. TISSUE DENSITY: There are scattered [...] Procedure Note Weston Holder MD - 01/06/2024 [facility] Diagnostic Imaging Department [address] [place] [id number] Patient: MARTHALIBERTY Nica ValleB./Age/Sex: 1955 - F Unit#: [id number] Location/Status: [facility] Mnemonic/Ordering Site: [facility] Ordering Physician: CHARISSA GONZALEZ MD Gen Screening Digital - 01/05/24 - 1345 Report Status:Signed EXAM: SCREENING MAMMOGRAPHY, BILATERAL HISTORY: SCREENING. Family history of breast cancer COMPARISON: 01/11/2022, 12/22/2020, 11/25/2019 TECHNIQUE: Synthesized CC and MLO projections of each breast.Tomosynthesis of each breast in the CC and MLO projections. ADDITIONAL IMAGING: None Computer-aided detection was employed with the iCAD Designer Material AI 3-D. TISSUE DENSITY: There are scattered [...] Date/Time: 01/05/24 1450 Sign date/Time: 01/05/24 1459 Charissa Gonzalez MD IM BI PROCEDURES Final Result from Last 3 Months or Most Recently Relevant to Health Maintenance Insurance MEDICARE [facility] [[email or web address]] Care Teams Thermal Molder Relationship Specialty Start Date End Date Charissa Gonzalez MD [address] [place] [id number] PCP - General Internal Medicine 10/14/24
--- OUTSIDE RECORDS SUMMARY | 2024-12-20 16:53 | XMS_ITS | Encounter Summary ---
Author Organization [facility] Address [address] [place] [address] Phone Care Team Providers Care Currency Machine Operator Name Role Phone Luis Cisneros MD Primary Care Provider [phone] Encounter Details Date Type Department Care Team (Late st Contact Info) Description 06/16/2022 Documentation Only [facility] [address] [place] [address] Cristel Kaiser [place] Social History [...] on filedocumented in this encounter Care Teams Currency Machine Operator Relationship Specialty Start Date End Date Luis Cisneros MD [address] [facility] [address] [place] [address] PCP - General Internal Medicine 02/22/22 documented as of this encounter
== END 2024-12-20 15:11 | disposition home or self-care (01) ==
LOC: HO.HKA 14:22
PROVIDERS: PCP Internal Medicine; Visit Provider Internal Medicine Nephrology
DX: I70.1 Atherosclerosis of renal artery (principal); N18.31 Chronic kidney disease, stage 3a
CPT/HCPCS: 99214

== ENCOUNTER → 2024-12-20 14:21 | Outpatient (BNVA) | payer MEDICARE, SELFPAY | PROVIDERS: PCP Internal Medicine; Visit Provider Internal Medicine Nephrology | DX: I70.1 Atherosclerosis of renal artery (principal); I12.9 Hypertensive chronic kidney disease with stage 1 through stage 4 chronic kidney disease, or unspecified chronic kidney disease; N18.31 Chronic kidney disease, stage 3a | CPT/HCPCS: 99212 ==